=== PATIENT | male | born 1935 | race Caucasian/White ===

== ENCOUNTER 2016-07-18 09:36 | Emergency (ER) | payer MEDICARE ==
[~2016-07-18] VITALS: Ht 172.7 cm; Wt 102.7 kg
[2016-07-18 09:37] VITALS: BP 167/89; PULSE 69; RESP 15; TEMP 97.8; O2SAT 95
[2016-07-18 09:45] VITALS: BP 149/72; PULSE 72; RESP 16; O2SAT 96
[2016-07-18] MEDS ORDERED: MEDI220T PO (09:53)
[2016-07-18] MEDS ORDERED: LISI10TA3 PO (09:53)
[2016-07-18] MEDS ORDERED: ASPI81CH CHEW (09:53)
[2016-07-18] MEDS ORDERED: SIMV20TA PO (09:53)
--- NOTE | 2016-07-18 10:00 | PD ---
HPI Chief Complaint: Injury Time Seen by Provider: 09:49 Travel History International Travel<30 days: No Contact w/Intl Traveler<30days: No Traveled to known affect area: No History of Present Illness HPI This is a 81-year-old male who has a history of a stroke who presents to the emergency department having had a mechanical fall yesterday evening when the wind blew him over. He landed on his left outstretched hand. He sustained an injury to his left fifth digit. He reports he has constant moderate pain involving the left finger and is having difficulty moving it. He denies any other injuries. He takes 81 mg of aspirin a day but says he didn't hit his head and has no neck pain. 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 HEAD: Atraumatic. Normocephalic. EYES: Pupils equal and round. No injection or drainage. ENT: Moist mucous membranes NECK: Trachea midline. CARDIOVASCULAR: Regular rate and rhythm. No murmur appreciated. Normal capillary refill in the left fifth digit RESPIRATORY: Clear to auscultation. Breath sounds equal bilaterally. GASTROINTESTINAL: Abdomen soft, non-tender, nondistended. MUSCULOSKELETAL: Left fifth digit is held in flexion at the PIP and extension at the DIP, unable to flex or extend at joints NEUROLOGICAL: Awake and alert. No obvious cranial nerve deficits. 4 out of 5 strength in the left upper and left lower extremities. Sensation is diminished but intact in the left fifth digit. Sensation in the left upper extremity is chronically diminished compared to the right. PSYCHIATRIC: Appropriate mood and affect; insight and judgment normal. Data Data Last Documented VS Vital Signs Date Time Temp Pulse Resp B/P Pulse Ox O2 Delivery O2 Flow Rate FiO2 07/18/16 09:45 72 16 149/72 96 07/18/16 09:45 Room Air 07/18/16 09:37 97.8 Orders Hand, Complete ([id number]) (07/18/16 ) Lidocaine Pf 1% Inj (Xylocaine-Mpf 1% In (07/18/16 10:45) Finger ([id number]) (07/18/16 ) MDM Medical Decision Making Medical Screen Exam Complete: Yes Emergency Medical Condition: Yes Interpretation(s) Afebrile, no tachycardia, hypertensive Last 24 hours Impressions Hand X-Ray 07/18/16 0000 Signed Impressions: Service Date/Time: Monday, July 18, 2016 09:50 - CONCLUSION: 1. Subluxation versus dislocation at the fourth digit PIP joint. No fracture is seen. 2. 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 The fifth digit is in fixed flexion at the PIP joint. Don Duffy MD Finger X-Ray 07/18/16 0000 Signed Impressions: Service Date/Time: Monday, July 18, 2016 10:48 - CONCLUSION: Reduction of the fourth digit PIP joint dislocation. Small osseous fragment anterior to the PIP joint could represent an avulsion fracture. Don Duffy MD Differential Diagnosis Phalanx dislocation, phalanx fracture, ligamentous injury Narrative Course This is a 81-year-old male who presents to the emergency department having sustained an injury to his finger last evening in the setting of a mechanical fall. He has recurrent falls because he has a history of stroke. X-ray demonstrated a dislocation of the PIP of the fourth digit. 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 I performed a digital block and reduced the fourth finger. Patient tolerated the procedure well. Post reduction film demonstrates a volar avulsion fracture at the PIP joint. He was placed in a dorsal extension block splint and told to follow-up with hand surgery as soon as possible. Procedures Procedure Narrative Digital block: 5 cc of 1% lidocaine were injected at the metacarpal head of the left fourth digit. Patient tolerated the procedure well and achieved anesthesia. Dislocation reduction: The fourth digit was reduced with distal traction. Patient had a normal neurovascular exam following the procedure and recovered his ability to flex and extend at the PIP joint. Splint: An aluminum dorsal extension block splint was placed on the left fourth digit. Patient had a normal neurovascular exam following the procedure. Diagnosis Primary Impression: Closed fracture dislocation of proximal interphalangeal (PIP) joint of finger Patient Instructions: General Instructions Additional Instructions: If he developed coolness, weakness or severe pain in her finger return to the emergency room. Follow-up with a hand surgeon as soon as possible. Med/Other Pt SpecificInfo: No Change to Meds Disposition: 01 DISCHARGE HOME Condition: Stable Beulah Bruce MD Jul 18, 2016 10:00
--- NOTE | 2016-07-18 10:19 | RADRPT ---
EXAM DATE/TIME: 07/18/2016 09:50 [facility] COMPARISON: No previous studies available for comparison. INDICATIONS : Fall. Left hand and finger pain. MEDICAL HISTORY : None. SURGICAL HISTORY : None. ENCOUNTER: Initial ACUITY: 1 day PAIN SCORE: 8/10 LOCATION: Left upper extremity FINDINGS: 3 views of the left hand demonstrate no acute fracture. There is subluxation versus dislocation at th e fourth digit proximal interphalangeal joint. The fifth digit PIP joint is in fixed flexion. There a re osteoarthritis changes at the first carpometacarpal joint, the first through third metacarpophalan geal joint, and multiple interphalangeal joints. No soft tissue abnormality or radiopaque foreign bod y is identified. CONCLUSION: 1. Subluxation versus dislocation at the fourth digit PIP joint. No fracture is seen. 2. 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 The fifth digit is in fixed flexion at the PIP joint. Don Duffy MD on July 18, 2016 at 10:15 Board Certified Radiologist. This report was verified electronically.
[2016-07-18] MEDS ORDERED: LIDOCAINE HCL 1% PF 30 ML VIAL NB ONE (10:45)
--- NOTE | 2016-07-18 11:20 | RADRPT ---
EXAM DATE/TIME: 07/18/2016 10:48 [facility] COMPARISON: HAND LEFT COMPLETE ([id number]), July 18, 2016, 9:50. INDICATIONS : Left Hand, 4th Digit. Post Reduction. MEDICAL HISTORY : None. SURGICAL HISTORY : None. ENCOUNTER: Initial ACUITY: 1 day PAIN SCORE: 0/10 LOCATION: Left Hand, 4th Digit. FINDINGS: 3 views of the left hand fourth digit demonstrate reduction of the fourth digit PIP joint dislocation . There is a small osseous density anterior to the PIP joint which could represent a fracture fragmen t. Otherwise, no definite fracture is seen. Visualized surrounding structures are stable. CONCLUSION: Reduction of the fourth digit PIP joint dislocation. Small osseous fragment anterior to the PIP joint could represent an avulsion fracture. Don Duffy MD on July 18, 2016 at 11:17 Board Certified Radiologist. This report was verified electronically.
== END 2016-07-18 12:04 | disposition home or self-care (01) ==
LOC: NEPA 09:36
DX: S63.285A Dislocation of proximal interphalangeal joint of left ring finger, initial encounter (principal); W19.XXXA Unspecified fall, initial encounter
CPT/HCPCS: 26770; 64450; 73130; 73140